=== PATIENT | male | born 1995 | race Two or more races ===

== ENCOUNTER 2018-06-05 11:51 | Emergency (ER) | payer OTHER ==
[2018-06-05 12:06] VITALS: TEMP 99; BMI 30.9
--- NOTE | 2018-06-05 14:41 | PDOC ---
History of Present Illness - General Chief Complaint: Psychiatric Stated Complaint: ANXIETY, PANIC ATTACK Time Seen by Provider: 06/05/18 14:38 - History of Present Illness Initial Comments: 23yo M with PMH of diverticulitis and migraine presenting with anxiety. He has felt this way since when he was diagnosed with diverticulitis at [facility] and treated with antibiotics. Since that time he has had poor sleep and has been eating less. He endorses anxiety about his diagnosis and feeling ' lost', palpitations, chest pressure, left sided frontal headache, and dyspnea. His symptoms worsened this morning so he decided to come to the ED. Denies fever , chills, or abdominal pain. Denies prior mental health history. No SI, HI, AH, or VH. Denies owning or access to firearms. Reports strong social support at home. 06/05/18 15:25 Past History - Past Medical History Allergies/Adverse Reactions: Allergies Allergy/AdvReac Type Severity Reaction Status Date / Time No Known Allergies Allergy Verified 06/05/18 12:03 Home Medications: Ambulatory Orders Ciprofloxacin HCl [Cipro] 750 mg PO BID 06/05/18 metroNIDAZOLE [Flagyl -] 500 mg PO QID 06/05/18 COPD: No Other medical history: tx for diverticulitis - Suicide/Smoking/Psychosocial Hx Smoking Status: No Smoking History: Never smoked Number of Cigarettes Smoked Daily: 0 Hx Alcohol Use: No Drug/Substance Use Hx: No Review of Systems - Review of Systems Comments:: Constitutional: no fever, no chills HEENT: no throat pain, no dysphagia Cardiovascular: +chest pain, +palpitations Respiratory: no cough, +shortness of breath Gastrointestinal: no abdominal pain, no nausea, no vomiting Genitourinary: no dysuria, no frequency Musculoskeletal: no myalgia, no arthralgia Skin: no rash, no itching Neurologic: +headache, no dizziness *Physical Exam - Vital Signs Last Vital Signs Temp Pulse Resp BP Pulse Ox 99 F 81 18 138/75 98 06/05/18 12:04 06/05/18 12:04 06/05/18 12:04 06/05/18 12:04 06/05/18 12:04 - Physical Exam Comments: General: Awake, alert, and fully oriented, in no acute distress Head: no signs of trauma Eyes: PERRL, EOMI, sclera anicteric ENT: moist mucus membranes, Neck: Normal ROM, supple Lungs: Lungs clear, Normal breath sounds Cardio: Regular rhythm, S1 and S2 present Abdomen: Soft, nontender Extremities: Normal range of motion, Distal pulses present SKIN: Warm, Dry, normal turgor Neurologic: Cranial nerves II through XII grossly intact. Normal speech ED Treatment Course - LABORATORY CBC & Chemistry Diagram: 06/05/18 16:01 06/05/18 16:01 Medical Decision Making - Medical Decision Making 23yo M with anxiety about his diverticulitis and feeling 'lost', palpitations, chest pressure, left sided frontal headache, and dyspnea. VSS. Ordered EKG, CBC , CMP. Will reassess. 06/05/18 16:06 Patient is feeling better. Labs are unremarkable. EKG with normal rate and rhythm, and no ST depressions/elevations. Patient has an appointment to see his primary care provider tomorrow. Will discharge. Laboratory Results - last 24 hr 06/05/18 06/05/18 16:01 16:01 WBC 6.6 RBC 5.91 H Hgb 16.8 Hct 48.3 MCV 81.7 MCH 28.4 MCHC 34.8 RDW 14.2 Plt Count 235 MPV 8.4 Absolute Neuts (auto) 4.5 Neutrophils % 68.0 Lymphocytes % 24.2 D Monocytes % 5.7 Eosinophils % 1.4 D Basophils % 0.7 Nucleated RBC % 0 Sodium 139 Potassium 4.3 Chloride 104 Carbon Dioxide 30 Anion Gap 5 L BUN 12 Creatinine 1.2 Creat Clearance w eGFR > 60 Random Glucose 102 Calcium 9.4 Total Bilirubin 0.9 AST 22 ALT 38 Alkaline Phosphatase 73 Troponin I < 0.02 Total Protein 7.6 Albumin 4.5 *DC/Admit/Observation/Transfer Diagnosis at time of Disposition: Atypical chest pain - Discharge Dispostion Disposition: HOME Condition at time of disposition: Improved - Referrals Referrals: Tarki Nava MD [Primary Care Provider] - - Patient Instructions Printed Discharge Instructions: DI for Anxiety -- Adult Additional Instructions: You came to the emergency department for anxiety and chest pain. We performed an EKG and blood work which were normal . Follow-up with your primary care physician, Dr. Nava, at your appointment tomorrow. Call for emergency medical services right away if you have: Suicidal thoughts Rapid, irregular heartbeat, or chest pain - Post Discharge Activity
--- NOTE | 2018-06-05 15:20 | PDOC ---
Attending Attestation - HPI HPI: 06/05/18 16:34 The patient is a 23 year old male, with a significant past medical history of diverticulitis and migraines, who presents to the emergency department with, anxiety. As per patient, the past 5 days he has been ill. He went to [facility] and was diagnosed with diverticulitis and given antibiotics. Since taking these, he reports palpitations, decreased sleep and feeling lost, and chest pressure. He denies any suicidal or homicidal ideation. He denies any recent fevers, chills, headache or dizziness. He denies any recent nausea, vomit, diarrhea or constipation. He denies any recent shortness of breath. He denies any recent dysuria, frequency, urgency or hematuria. Allergies: NKA Primary Care Physician: Dr. Nava <Antoinette Haque - Last Filed: 06/05/18 16:34> - Resident Resident Name: JesSamira - ED Attending Attestation I have performed the following: I have examined & evaluated the patient, The case was reviewed & discussed with the resident, I agree w/resident's findings & plan, Exceptions are as noted - Physicial Exam PE: 06/07/18 10:03 GENERAL: The patient is in no acute distress. LUNGS: Breath sounds equal, clear to auscultation bilaterally. No wheezes, and no crackles. HEART:Regular rate and rhythm, normal S1 and S2 without murmur, rub or gallop. ABDOMEN: Soft, nontender, normoactive bowel sounds. EXTREMITIES: Normal range of motion, no edema. NEUROLOGICAL: Cranial nerves II through XII grossly intact. Normal speech. No focal neurological deficits. MUSCULOSKELETAL: Back non-tender to palpation, no CVA tenderness SKIN: Warm, Dry, normal turgor, no rashes or lesions noted. PSYCH: calm, cooperative - Medical Decision Making 06/05/18 16:12 23 yo M presenting to the ER with a complaint of anxiety and panic Pt only change has been recent diagnosis of diverticulitis on abx NO SI, HI No AH, VH No prior psychiatric admission Anxiety associated with chest pain, shortness of breath Will do Labs EKG Re assess 06/05/18 16:15 Twelve-lead EKG was performed and reviewed by me. There is normal sinus rhythm with a normal rate. The axis is normal. The intervals are normal. There are no ST or T wave abnormalities. Impression: Normal twelve-lead EKG 06/07/18 10:06 Laboratory Tests 06/05/18 06/05/18 16:01 16:01 WBC 6.6 Hgb 16.8 Hct 48.3 Plt Count 235 BUN 12 Creatinine 1.2 Alkaline Phosphatase 73 Troponin I < 0.02 Will follow up tomorrow with PMD Return to the ER if he feels unsafe, suicidal, homicidal, etc <Isabel Ling - Last Filed: 06/07/18 10:07> Attestations - Attestations 06/05/18 16:35 Documentation prepared by Antoinette Haque, acting as medical communication specialist for Isabel Ling MD. <Antoinette Haque - Last Filed: 06/05/18 16:34>
[2018-06-05 16:10] LABS: BASO % 0.7 % (0-2.0); EOS % 1.4 % (0-4.5); HEMATOCRIT 48.3 % (35.4-49); HEMOGLOBIN 16.8 GM/dL (11.7-16.9); LYMPH % 24.2 % (8-40); MCH 28.4 pg (25.7-33.7); MCHC 34.8 g/dl (32.0-35.9); MEAN CELL VOLUME 81.7 fl (80-96); MEAN PLT VOLUME 8.4 fl (7.5-11.1); MONO % 5.7 % (3.8-10.2); PLATELET COUNT 235 K/MM3 (134-434); RBC 5.91 M/mm3 (4.00-5.60); RDW 14.2 % (11.9-15.9); WHITE BLOOD COUNT 6.6 K/mm3 (4.0-10.0)
[2018-06-05 16:35] LABS: ALBUMIN 4.5 g/dl (3.4-5.0); ANION GAP 5 (8-16); BLOOD UREA NITROGEN 12 mg/dL (7-18); CALCIUM 9.4 mg/dL (8.5-10.1); CHLORIDE 104 mmol/L (98-107); CO2 30 mmol/L (21-32); CREATININE 1.2 mg/dL (0.7-1.3); GLUCOSE,RANDOM 102 mg/dL (74-106); POTASSIUM 4.3 mmol/L (3.5-5.1); SGOT/AST 22 U/L (15-37); SGPT/ALT 38 U/L (12-78); SODIUM 139 mmol/L (136-145)
[2018-06-05 16:39] LABS: ALK PHOS 73 U/L (45-117); BILIRUBIN,TOTAL 0.9 mg/dL (0.2-1.0); TOT PROT 7.6 g/dl (6.4-8.2)
[2018-06-05 17:37] VITALS: BP 130/70; PULSE 85
--- NOTE | 2018-06-06 16:27 | EKG ---
Test Reason : Blood Pressure : / mmHG Vent. Rate : 066 BPM Atrial Rate : 066 BPM P-R Int : 158 ms QRS Dur : 112 ms QT Int : 392 ms P-R-T Axes : 072 078 053 degrees QTc Int : 410 ms NORMAL SINUS RHYTHM INCOMPLETE RIGHT BUNDLE BRANCH BLOCK BORDERLINE ECG NO PREVIOUS ECGS AVAILABLE Confirmed by Andrew Vallejo MD ([id number]) on 06/06/2018 4:27:03 PM Referred By: Confirmed By:Andrew Vallejo MD
== END 2018-06-05 17:37 | disposition home or self-care (01) ==
LOC: JER 11:51
DX: R07.89 Other chest pain (principal)
CPT/HCPCS: 36415; 80053; 84484; 85025; 93005; 93010; 99283-25